=== PATIENT | female | born 1995 | race Caucasian/White ===

== ENCOUNTER 2025-04-02 20:23 | Day surgery (SDC) | payer OTHER ==
[2025-04-02] MEDS ORDERED: hydrALAZINE 20 MG/ML VIAL SLOW IVP PRN (21:02)
== END 2025-04-02 22:56 | disposition home or self-care (01) ==
LOC: CSHLD/OP 20:23
PROVIDERS: ATTEND Student in an Organized Health Care Education/Training Program
DX: O47.03 False labor before 37 completed weeks of gestation, third trimester (principal); O46.93 Antepartum hemorrhage, unspecified, third trimester; Z3A.36 36 weeks gestation of pregnancy; Z88.2 Allergy status to sulfonamides
CPT/HCPCS: 76815; 76819; 99284

== ENCOUNTER 2025-04-05 21:33 | Inpatient (IN) | payer OTHER ==
[2025-04-05 22:58] VITALS: BMI 28.5
[2025-04-05 22:59] LABS: Hematocrit 35.0 % (34.9-44.5); Hemoglobin 11.7 g/dL (12.0-15.5); Mean Corpuscular Hemoglobin 27.6 pg (27.0-33.0); Mean Corpuscular Volume 82.5 fL (81.6-98.3); Platelet Count 119 10x3/uL (150-450); Red Blood Cell (RBC) Count 4.24 10x6/uL (3.90-5.03); White Blood Cell (WBC) Count 11.76 10x3/uL (3.5-10.5)
[2025-04-05] MEDS ORDERED: Oxytocin 30 units/NS 500 ML 500 ML IV SCH ×2 (23:15→23:30)
[2025-04-05] MEDS ORDERED: Lidocaine 1% (PF) 30 ML VIAL SC PRN (23:15)
[2025-04-05 23:16] LABS: Glucose 92 mg/dL (70-105)
[2025-04-05 23:22] LABS: Hep B Surf Ag - L&D Non-Reactive S/CO (NonReactive); Syphilis Antibody Index 0.05 S/CO (<1.00 Non-Reactive)
[2025-04-05] MEDS: fentaNYL/Ropivacaine Epidural 100 ML ONE (23:24)
[2025-04-05] MEDS ORDERED: Methylergonovine 0.2 MG/ML VIAL IM PRN (23:30)
[2025-04-05] MEDS ORDERED: Ondansetron PF 4 MG/2 ML Vial IVP PRN ×2 (23:30→23:50)
[2025-04-05] MEDS ORDERED: Acetaminophen 500 MG TAB PO PRN (23:30)
[2025-04-05] MEDS ORDERED: Carboprost 250 MCG/ML AMP IM PRN (23:30)
[2025-04-05] MEDS ORDERED: Tranexamic Acid 1,000 MG/10 ML VIAL IVP PRN (23:30)
[2025-04-05] MEDS ORDERED: Diphenoxylate HCl/Atropine Tablet PO PRN ×2 (23:30)
[2025-04-05] MEDS ORDERED: hydrALAZINE 20 MG/ML VIAL SLOW IVP PRN (23:30)
[2025-04-05] MEDS ORDERED: fentaNYL 2 mcg/Ropivacaine 0.2% Epidural 100 ML CADD EPIDURAL SCH (23:45)
[2025-04-05] MEDS ORDERED: Communication Order-Pharmacy FS SCH (23:45)
[2025-04-05] MEDS ORDERED: diphenhydrAMINE 50 MG/ML VIAL IVP PRN (23:50)
[2025-04-05] MEDS ORDERED: Acetaminophen 325 MG TAB PO PRN (23:50)
[2025-04-06] MEDS: Ibuprofen 800 MG TAB PO PRN (06:16)
[2025-04-06] MEDS ORDERED: HYDROcodone/Acetaminophen 5/325 mg Tablet PO PRN (06:22)
[2025-04-06] MEDS ORDERED: Bisacodyl 10 MG SUPP PR PRN (06:22)
[2025-04-06] MEDS ORDERED: Ondansetron PF 4 MG/2 ML Vial IVP PRN (06:22)
[2025-04-06] MEDS ORDERED: Milk Of Magnesia 30 ML UDCUP PO PRN (06:22)
[2025-04-06] MEDS ORDERED: hydrALAZINE 20 MG/ML VIAL SLOW IVP PRN (06:22)
[2025-04-06] MEDS ORDERED: Preparation H Ointment 28 GM TUBE PR PRN (06:22)
[2025-04-06] MEDS ORDERED: Lanolin Ointment 7 GM TUBE TOP PRN (06:22)
[2025-04-06] MEDS ORDERED: diphenhydrAMINE 25 MG CAP PO PRN (06:22)
[2025-04-06] MEDS: Ferrous Sulfate 325 MG TAB PO SCH (08:10)
[2025-04-06] MEDS: Ibuprofen 800 MG TAB PO SCH (13:18)
[2025-04-06] MEDS: Benzocaine-Menthol 82.5 ML CAN TOP PRN (19:57)
[2025-04-07 08:23] VITALS: BP 107/69; TEMP 97.6
== END 2025-04-07 12:35 | disposition home or self-care (01) | DRG 807 ==
LOC: CSHLD/OP 21:33 → CSHLD 22:05 → CSHPED 04-06 06:10
PROVIDERS: ADMIT Student in an Organized Health Care Education/Training Program; ATTEND Student in an Organized Health Care Education/Training Program
PROC: 10E0XZZ Delivery of Products of Conception, External Approach (ICD-10-PCS; principal; 2025-04-06)
PROC: 0HQ9XZZ Repair Perineum Skin, External Approach (ICD-10-PCS; 2025-04-06)
PROC: 3E0234Z Introduction of Serum, Toxoid and Vaccine into Muscle, Percutaneous Approach (ICD-10-PCS; 2025-04-06)
DX: O24.429 Gestational diabetes mellitus in childbirth, unspecified control (principal); Z37.0 Single live birth; Z3A.38 38 weeks gestation of pregnancy; O70.0 First degree perineal laceration during delivery; Z79.899 Other long term (current) drug therapy; O26.893 Other specified pregnancy related conditions, third trimester; Z67.41 Type O blood, Rh negative
CPT/HCPCS: 36415; 51702; 82947; 85027; 85461; 86780; 86850; 86900; 86901; 87340; 90384; 96372; 99285